=== PATIENT | male | born 1955 | race Caucasian/White ===

== ENCOUNTER 2017-02-16 00:06 | Observation (INO) | payer BC ==
--- NOTE | 2017-02-10 14:26 | HISTORY AND PHYSICAL ---
DATE OF ADMISSION: February 16, 2017 CHIEF COMPLAINT Interval appendectomy. 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 He does not drink anymore. He had a perforated appendix on November, that was treated with percutaneous drainage and antibiotics. He has recovered, and he returns now for an interval appendectomy. ALLERGIES He has no known allergies. CURRENT MEDICATIONS * Furosemide 10 mg twice a day. * Ibuprofen p.r.n. * Propranolol 20 mg twice a day. * Spironolactone 50 mg a day. PAST SURGICAL HISTORY * Carpal tunnel. * Colonoscopy. * Two laminectomies. REVIEW OF SYSTEMS Significant for the history of the alcoholic cirrhosis. PHYSICAL EXAMINATION GENERAL: A 61-year-old male in no acute distress. LUNGS: Clear. HEART: Regular rhythm. ABDOMEN: Soft, nontender. IMPRESSION History of perforated appendix. PLAN Laparoscopic appendectomy. We discussed the procedure, complications, and recovery time. He seems to understand and wishes to proceed. MACARIO
[2017-02-16] VITALS (17 sets, daily range): BP systolic 98–145; BP diastolic 62–84
[~2017-02-16] VITALS: Ht 175.3 cm; Wt 89.8 kg
[~2017-02-16 00:06] MED LIST: ASPI-1017 PO; ASPI-715 PO; CYC10 PO; FURO-45 PO; IBUP600T22 PO; LEVO-85 PO; METR-1 PO; PROP10TA58 PO; SPIR50TA31 PO
[2017-02-16] MEDS ORDERED: ROPIVACAINE 0.2% 20 ML VIAL ONE (06:46)
[2017-02-16 07:34] LABS: PLATELET COUNT, AUTOMATED 115 K/uL (150-450)
[2017-02-16] MEDS ORDERED: NORMOSOL R SOLN(*) 1000 ML BAG 1,000 ML IV PRN ×2 (07:45→10:29)
[2017-02-16] MEDS ORDERED: LIDOCAINE/SOD BICARB 8.4% SYR ID ONE (07:45)
[2017-02-16] MEDS ORDERED: cefOXitin/DEX(*) 2GM/50ML PREM 50 ML IVPB ONE (07:45)
[2017-02-16] MEDS ORDERED: FAMOTIDINE 20 MG TAB PO ONE (07:45)
[2017-02-16] MEDS ORDERED: MIDAZOLAM 2 MG/2 ML VIAL IVP PRN (07:45)
[2017-02-16 07:46] LABS: INR 1.3
[2017-02-16] MEDS ORDERED: SUGAMMADEX SOD 200 MG/2 ML SDV ONE (09:00)
[2017-02-16] MEDS ORDERED: ROCURONIUM BROM 10 MG/ML 5 ML ONE (09:00)
[2017-02-16] MEDS ORDERED: fentaNYL CITR 100 MCG/2 ML AMP ONE ×3 (09:38→10:52)
--- NOTE | 2017-02-16 10:29 | Post Operative Progress Note ---
Post Operative Progress Note Date: Feb 16, 2017 Time: 10:28 Surgeon: earnest Anesthesia: dr szymanski Pre-Op Diagnosis: history of perofarated appendix Post-Op Diagnosis: same Procedure(s): interval appendectomy Estimated Blood Loss: 500 cc MEDINA SPANN MD Feb 16, 2017 10:29
[2017-02-16] MEDS ORDERED: ONDANSETRON 4 MG/2 ML VIAL IVP PRN (10:30)
[2017-02-16 10:54] LABS: PLATELET COUNT, AUTOMATED 102 K/uL (150-450)
[2017-02-16] MEDS ORDERED: NS(*) 0.9% 500 ML BAG 500 ML ONE (10:56)
[2017-02-16] MEDS: cefOXitin/DEX(*) 1GM/50ML PREM 50 ML IVPB SCH (16:24)
--- NOTE | 2017-02-16 20:01 | OPERATIVE REPORT 1 ---
EVENT DATE: February 16, 2017 SURGEON: Salbador Cooper MD ANESTHESIOLOGIST: Marquis Acosta MD ANESTHESIA: General. PREOPERATIVE DIAGNOSIS History of a ruptured appendix. POSTOPERATIVE DIAGNOSIS History of a ruptured appendix. PROCEDURE PERFORMED Interval appendectomy. DESCRIPTION OF PROCEDURE The patient was placed in the supine position and given general anesthetic. His abdomen was prepped and draped in a sterile fashion. The skin was anesthetized with 0.2% ropivacaine. A small incision was made above the umbilicus. A Veress needle was inserted. The abdomen was insufflated with CO2. We then placed a 5 mm port in the left lower quadrant and a 10 mm port in the suprapubic site under direct vision. The patient was placed in Trendelenburg and rotated to the left. We went to the right lower quadrant. He had small intestine adhered to the lateral side of the abdomen lying over the cecum. We had to take down these adhesions. We did this with blunt dissection, sharp dissection, and the Harmonic scalpel. This was tedious, and it oozed. We continued our dissection. He had oozing throughout the procedure. We were able to get the small bowel and rotated medially. This exposed the appendix which was adhered down in the right lower quadrant quite firmly. This was dissected free with the Harmonic scalpel and blunt dissection. Again, we continued to have a little oozing. We were able to continue our dissection slowly, but progressively, and we were able to identify the appendiceal-cecal junction. At this point, we divided the mesoappendix with the Harmonic scalpel down to the appendiceal-cecal junction. We then placed an 0 chromic Endoloop at the appendiceal-cecal junction and two 0 PDS Endoloops distal. It was cut between the two PDS Endoloops. I placed the appendix in an Endopouch and removed it from the field. We suctioned, irrigated , and inspected for bleeding. We had good hemostasis, but because of the oozing that occurred throughout the dissection, we used Germán powder in the right lower quadrant at the appendix area and the dissection area. We then let the pressure down, waited three minutes, and reinspected. We had excellent hemostasis at this point, and the procedure was terminated. The ports were removed under direct vision. No bleeding was noted. The skin was closed with interrupted 4-0 Maxon. Steri-Strips and an Airstrip were placed. The patient tolerated the procedure well. No apparent complications. Estimated blood loss 500 mL. MTDD
[2017-02-17] MEDS: cefOXitin/DEX(*) 1GM/50ML PREM 50 ML IVPB SCH (00:56)
[2017-02-17 05:08] VITALS: BP 126/81
[2017-02-17 06:00] LABS: PLATELET COUNT, AUTOMATED 77 K/uL (150-450)
[2017-02-17 06:10] LABS: INR 1.46
[2017-02-17] MEDS: NORMOSOL R SOLN(*) 1000 ML BAG 1,000 ML IV PRN (06:18)
[2017-02-17 07:36] VITALS: BP 111/86
--- NOTE | 2017-02-17 08:05 | General Surgery Progress Note ---
Subjective Progress Notes Subjective has some diffuse abdominal pain, no nausea. voided. not much of an appetite. Physical Exam Vital Signs Date Time Temp Pulse Resp B/P (MAP) Pulse Ox O2 Delivery O2 Flow Rate FiO2 02/17/17 07:36 98.8 116 20 111/86 (94) 88 Room Air 02/16/17 23:39 2.0 General Appearance: Alert, Awake GI: Other (distended and firm tender diffusely.) Result Diagram: 02/17/17 0534 02/16/17 0720 Assessment and Plan Problems: (1) Status post appendectomy Assessment & Plan: a little tachycardic, oxygen sats low. wbc slightly elevated. hgb 14, platelets 77,000. will check a cxr. will repeat cbc later. try to work on ambulation and incentive spirometer. Exam Sepsis Risk: Severe Sepsis Risk MEDINA SPANN MD Feb 17, 2017 08:05
[2017-02-17] MEDS ORDERED: MAGNESIUM HYDROXIDE* 30ML UDCP PO PRN (08:10)
[2017-02-17] MEDS ORDERED: SPIRONOLACTONE 25 MG TAB PO SCH (09:00)
[2017-02-17] MEDS ORDERED: PANTOPRAZOLE SOD 40 MG TABEC PO SCH (09:00)
[2017-02-17] MEDS ORDERED: FUROSEMIDE 20 MG TAB PO SCH (09:00)
[2017-02-17] MEDS ORDERED: NICOTINE 14 MG/24 HR PATCH TD SCH (09:00)
[2017-02-17] MEDS ORDERED: PSYLLIUM 28% 1 PACKET PO SCH ×2 (09:00→21:00)
[2017-02-17] MEDS: PROPRANOLOL HCL 20 MG TAB PO SCH ×2 (09:02→20:15)
[2017-02-17 09:33] VITALS: Ht 175.3 cm; Wt 89.8 kg
--- NOTE | 2017-02-17 09:44 | RADIOLOGY IMAGING REPORT ---
FACILITY: [facility] PATIENT NAME: Alphonso Martinez : 1955 MR: [id number] V: [id number] EXAM DATE: ORDERING PHYSICIAN: MEDINA SPANN TECHNOLOGIST: Location: [facility] - [place] Patient: Alphonso Martinez : 1955 Visit/Account:[id number] Date of Sevice: 02/17/2017 CHEST PA AND LAT History: post op low sats FINDINGS: Comparison studies: Comparison radiograph 08/13/2008 Tubes and Lines: None. Lungs and pleura: There is hypoinflation with lungs expanded to only 8 ribs. Minimal left basilar d iscoid atelectasis noted. No evidence of pleural effusion. Mediastinum: normal. Cardiac silhouette: normal . Osseous structures: Unremarkable for age . IMPRESSION: Mild postoperative left basilar atelectasis and hypoinflation. Otherwise unremarkable Report Dictated By: Stone Swenson MD at 02/17/2017 9:12 AM Report E-Signed By: Stone Swenson MD at 02/17/2017 9:16 AM WSN:[id number]
[2017-02-17 10:44] VITALS: BP 124/77
[2017-02-17 16:06] LABS: PLATELET COUNT, AUTOMATED 77 K/uL (150-450)
[2017-02-17 16:08] VITALS: BP 108/63
--- NOTE | 2017-02-17 17:44 | General Surgery Progress Note ---
Subjective Progress Notes Subjective pt complains of some low crampy pain. tolerated po diet. feels a little better Physical Exam Vital Signs Date Time Temp Pulse Resp B/P (MAP) Pulse Ox O2 Delivery O2 Flow Rate FiO2 02/17/17 16:08 98.8 96 20 108/63 (78) 89 Nasal Cannula 1.0 Intake and Output 02/18/17 07:00 Intake Total 240 ml Output Total 300 ml Balance -60 ml Intake Oral 240 ml Output Urine Total 300 ml # Voids 2 General Appearance: Alert, Awake, No Acute Distress GI: Other (less tender and distended than this am, passing flatus.) Result Diagram: 02/17/17 1558 02/16/17 0720 Assessment and Plan Problems: (1) Status post appendectomy Assessment & Plan: a little tachycardic, oxygen sats low. wbc slightly elevated. hgb 14, platelets 77,000. will check a cxr. will repeat cbc later. try to work on ambulation and incentive spirometer. 02/17/17 cxr reveals some atelectasis. wbc elevated at 13. hgb stable. bowel function returning. will repeat lab and physical exam in am Exam Sepsis Risk: Severe Sepsis Risk MEDINA SPANN MD Feb 17, 2017 17:44
[2017-02-17 19:45] VITALS: BP 120/68
[2017-02-18 03:34] VITALS: BP 115/62
[2017-02-18] MEDS: NORMOSOL R SOLN(*) 1000 ML BAG 1,000 ML IV PRN (03:34)
[2017-02-18 06:00] LABS: INR 1.7
[2017-02-18 06:17] LABS: PLATELET COUNT, AUTOMATED 70 K/uL (150-450)
[2017-02-18 07:08] VITALS: BP 102/69
[2017-02-18] MEDS ORDERED: MAGNESIUM HYDROXIDE* 30ML UDCP PO PRN (07:10)
--- NOTE | 2017-02-18 07:11 | General Surgery Progress Note ---
Subjective Progress Notes Subjective no complaints, pain improved, tolerating po diet Physical Exam Vital Signs Date Time Temp Pulse Resp B/P (MAP) Pulse Ox O2 Delivery O2 Flow Rate FiO2 02/18/17 03:34 98.6 85 20 115/62 (79) 90 Nasal Cannula 1.0 General Appearance: Alert, Awake, No Acute Distress GI: Other (soft less tender) Result Diagram: 02/18/17 0520 02/16/17 0720 Assessment and Plan Problems: (1) Status post appendectomy Assessment & Plan: a little tachycardic, oxygen sats low. wbc slightly elevated. hgb 14, platelets 77,000. will check a cxr. will repeat cbc later. try to work on ambulation and incentive spirometer. 02/17/17 cxr reveals some atelectasis. wbc elevated at 13. hgb stable. bowel function returning. will repeat lab and physical exam in am 02/18/17 lab improved wbc down hgb stable. pulse down bp up. overall improved. home today Exam Sepsis Risk: No Definite Risk MEDINA SPANN MD Feb 18, 2017 07:11
[2017-02-18] MEDS ORDERED: HYDR-4309 PO (07:12)
--- NOTE | 2017-02-18 07:13 | Hospitalist Depart ---
Discharge Summary Reason for Hosp/Final Diag: (1) Status post appendectomy Hospital Course & Plan: a little tachycardic, oxygen sats low. wbc slightly elevated. hgb 14, platelets 77,000. will check a cxr. will repeat cbc later. try to work on ambulation and incentive spirometer. 02/17/17 cxr reveals some atelectasis. wbc elevated at 13. hgb stable. bowel function returning. will repeat lab and physical exam in am 02/18/17 lab improved wbc down hgb stable. pulse down bp up. overall improved. home today Departure Weight (Pounds): 198 Result Diagram: 02/18/17 0520 02/16/17 0720 Condition: Improved Discharge: Home Discharge Instructions Home Meds Active Scripts Hydrocodone Bit/Acetaminophen (NORCO 5-325 TABLET) 1 Each Tablet, 1 EACH PO Q4H Y for PAIN, #30 TAB Prov:MEDINA SPANN MD 02/18/17 Reported Medications Propranolol Hcl (PROPRANOLOL HCL) 10 Mg Tablet, 10 MG PO BID 12/02/16 Furosemide (FUROSEMIDE) 20 Mg Tablet, 1 TAB PO DAILY, TAB 12/02/16 Spironolactone (SPIRONOLACTONE) 50 Mg Tablet, 50 MG PO QDAY 03/19/15 Discontinued Scripts Levofloxacin 500 Mg Tab (LEVAQUIN 500 MG TAB) 500 Mg Tablet, 500 MG PO QDAY for 7 Days, #7 TAB Prov:MEDINA SPANN MD 12/07/16 Metronidazole (FLAGYL) 500 Mg Tablet, 500 MG PO TID, #21 TAB Prov:MEDINA SPANN MD 12/07/16 Diet: Regular Activity: As Tolerated Special Instructions: may shower ice to incisions prn to see me in one week, call [phone] for apt Venous Thromboembolism Antithrombotics Is Pt On Any Antithrombotics?: No MEDINA SPANN MD Feb 18, 2017 07:13
[2017-02-18] MEDS ORDERED: PATCH REMOVAL 1 EA TP SCH (09:00)
== END 2017-02-18 07:11 | disposition home or self-care (01) ==
LOC: OR 00:06 → MED 11:50
PROVIDERS: ADMIT Surgery; ATTEND Surgery
DX: K37 Unspecified appendicitis (principal); R09.02 Hypoxemia; J95.89 Other postprocedural complications and disorders of respiratory system, not elsewhere classified; J98.11 Atelectasis; Z87.19 Personal history of other diseases of the digestive system; R10.84 Generalized abdominal pain; R79.89 Other specified abnormal findings of blood chemistry
CPT/HCPCS: 36415; 44970; 71046; 85014; 85018; 85025; 85610; 86850; 86900; 86901; 88304; G0378; J0694; J2795; J3010; P9017; 82310; 82374; 82435; 82565; 82947; 84132; 84295; 84520

== ENCOUNTER 2017-04-01 14:53 | Outpatient (RCR) | payer BC ==
[2017-02-17 09:33] VITALS: Ht 179.1 cm; Wt 93.3 kg
[2017-03-05 09:25] VITALS: BP 99/67
--- NOTE | 2017-03-05 18:47 | ONCOLOGY CONSULTATION ---
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 HISTORY OF PRESENT ILLNESS Patient is a 61-year-old male who presented with ruptured appendix with periappendiceal abscess, treated with tube drainage on December 03, 2016. He had elective appendectomy on February 17, 2016, and final pathology came back positive for 0.4 x 0.1 cm carcinoid tumor positive for synaptophysin, chromogranin. Patient is doing fine after his surgery. PAST MEDICAL HISTORY Alcoholic cirrhosis. PAST SURGICAL HISTORY 1. Appendectomy on February 16, 2017. 2. Two laminectomies in 1999 and 2007. 3. Left carpal tunnel release in 2003. FAMILY HISTORY Brother had pancreatic cancer. Maternal grandfather had lung cancer. SOCIAL HISTORY Patient is with two children. He is retired from [employer] for 30 years. He quit smoking in November 2016, after half to one pack a day for 20 years. He quit alcohol. Denies any abuse of illicit drugs. CURRENT MEDICATIONS 1. Propanolol 10 mg twice daily. 2. Lasix 20 mg daily. 3. Spironolactone 50 mg daily. ALLERGIES No known drug allergies. REVIEW OF SYSTEMS CONSTITUTIONAL: No appetite or weight change. No fever, chills or sweating. No recent infection. HEENT: Ears: No tinnitus or hearing problem. Nose: No nasal discharge or epistaxis. Throat: No sore throat or mouth ulcers. Eyes: No diplopia or visual changes. RESPIRATORY: No shortness of breath. No cough, expectoration or hemoptysis. CARDIOVASCULAR: No chest pain, orthopnea, or paroxysmal nocturnal dyspnea (PND) . No edema. No palpitations. GASTROINTESTINAL: No nausea or vomiting. No diarrhea or constipation. No change in bowel movements. No heartburn or swallowing difficulties. No abdominal pain. No jaundice. No hematemesis, melena or rectal bleeding. GENITOURINARY: No hematuria or dysuria. MUSCULOSKELETAL: No pain in the muscles, joints or bones. NEUROLOGICAL: Patient has sciatica pain sometimes. It can sometimes on the right side or the left side. HEMATOLOGIC/LYMPHATIC: No bleeding or easy bruising. No weakness or fatigue. No enlarged lymph nodes. SKIN: No skin rash or lumps. PSYCHIATRIC: No anxiety or depression. PHYSICAL EXAMINATION GENERAL: Looks stable. Well-developed, well-nourished, and in no acute distress. VITAL SIGNS: Blood pressure 99/67, pulse 75 per minute, respirations 16 per minute, temperature 96.8, pulse ox 97% on room air. HEENT: Head: Atraumatic. No sinus tenderness to palpation. Eyes: No icterus or conjunctivitis. Mouth and throat: No oral thrush or mucositis. NECK: Supple. No cervical or supraclavicular lymphadenopathy. LUNGS: Clear to auscultation and percussion bilaterally. HEART: Regular rate and rhythm. No gallops, murmurs, clicks or rubs. ABDOMEN: Soft and lax. No tenderness. No hepatosplenomegaly. No masses. EXTREMITIES: No cyanosis, clubbing or edema. LYMPHATICS: No peripheral lymphadenopathy. NEUROLOGICAL: Conscious, alert and oriented times three. No focal motor or sensory deficits. PSYCHIATRIC: Mood and affect appear normal. SKIN: No skin rash, bruise or purpuric eruption. ASSESSMENT 1. 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 Final pathology was positive for 0.4 x 0.1 cm carcinoid tumor. Despite the fact that right colectomy is controversial for the treatment of appendiceal carcinoid tumor, but most of the reports could recommend right colectomy if the mass is above 2 cm in size, and the patient's mass is only 0.4 x 0.1 cm. The only problem is a ruptured appendix with possible peritoneal dissemination. I am planning to do blood work with CBC, chem panel, chromogranin and CEA, and I am planning also to have a CT abdomen and pelvis with IV and oral contrast to see if there is any residual tumor or not. I explained that to the patient. The patient is agreeable with the plan of management. 2. History of alcoholic cirrhosis. PLAN 1. Continue followup. 2. Patient to return with CBC, chem panel, chromogranin A and CEA. 3. Check CT abdomen and pelvis with IV and oral contrast prior to his next visit. 4. Patient to contact us for any new concerns or complaints. MACARIO
[2017-03-25 08:22] VITALS: BP 124/66
[2017-03-25 08:49] LABS: PLATELET COUNT, AUTOMATED 106 K/uL (150-450)
--- NOTE | 2017-03-25 10:14 | RADIOLOGY IMAGING REPORT ---
FACILITY: [facility] - [place] PATIENT NAME: Alphonso Martinez : 1955 MR: [id number] V: [id number] EXAM DATE: ORDERING PHYSICIAN: JD GALARZA TECHNOLOGIST: Location: [facility] Patient: Alphonso Martinez : 1955 Visit/Account:[id number] Date of Sevice: 03/25/2017 ABDOMEN/PELVIS W/WO CONTRAST Indication: Carcinoid tumor. Comparison: CT abdomen and pelvis 12/02/2016 Technique: CT lung bases to the pubic symphysis were obtained without and with IV contrast. 75 cc of Isovue 370 was used. One of the following dose optimization techniques was utilized in the performance of this exam: autom ated exposure control; adjustment of the mA and/or kV according to the patient's size; or use of an i terative reconstruction technique. Specific details can be referenced in the facility's radiology CT exam operational policy. Findings: Liver/gallbladder: Liver demonstrates a 3 mm cyst in the lateral segment of the left lobe. Remainin g portions the liver demonstrate normal enhancement. The surface of the liver demonstrates a nodular contour, consistent with cirrhosis, stable. Small gallstones are seen. Spleen: Mild splenomegaly is unchanged. Adrenals: Normal. Pancreas: Normal enhancement without evidence of mass. Kidneys/: There is a simple cyst in the lower pole of the left kidney. Remaining portions of both right and left kidney demonstrate normal enhancement. There is no evidence of hydronephrosis. Pelvic : Urinary bladder is normal. GI: The colon, small bowel, and stomach are normal. Prior appendicitis has resolved. Vessels/spaces/nodes: There is no intraperitoneal or retroperitoneal adenopathy. Multiple periaorti c lymph nodes are seen, however they are all normal size. There is no intraperitoneal soft tissue ma ss. Bones/soft tissues: There are degenerative changes in the lumbar spine, as well as laminectomy surgi pascual changes. Lung bases: Lung bases are clear. Impression: 1. Previously seen right lower quadrant appendicitis, with inflamed appendix and loculated right low er quadrant fluid collection has resolved. There is no residual soft tissue mass. 2. Findings consistent with cirrhosis. There is no suspicious enhancing lesion in the liver. This is also unchanged. 3. Simple cyst lower pole left kidney. 4. No evidence of suspicious intraperitoneal or retroperitoneal soft tissue mass or adenopathy. Report Dictated By: Michele Silveira at 03/25/2017 10:03 AM Report E-Signed By: Michele Silveira at 03/25/2017 10:11 AM WSN:[id number]
[~2017-04-01] VITALS: Ht 179.1 cm; Wt 93.3 kg
[~2017-04-01 14:53] MED LIST changes: +DEXTROSE 5%(*) 100 ML BAG 100 ML IVPB PRN; +HYDR-4309 PO; +IOPAMIDOL 76% 75 ML INFUS BTL 75 ML ONE; +LIDOCAINE/SOD BICARB 8.4% SYR ID PRN; +NS(*) 0.9% 100 ML BAG 100 ML IVPB PRN
[2017-04-01 14:59] VITALS: BP 110/71
--- NOTE | 2017-04-01 20:18 | ONCOLOGY FOLLOW UP NOTE ---
EVENT DATE: April 01, 2017 DIAGNOSES 1. Appendicular carcinoid tumor. 2. History of alcoholic cirrhosis. CHIEF COMPLAINT Patient is here today for followup of his appendicular carcinoid tumor. ONCOLOGY HISTORY Patient is a 61-year-old male who presented with ruptured appendix with periappendiceal abscess, treated with tube drainage on December 03, 2016. He had elective appendectomy on February 17, 2016, and final pathology came back positive for 0.4 x 0.1 cm carcinoid tumor positive for synaptophysin, chromogranin. Patient is doing fine after his surgery. HISTORY OF PRESENT ILLNESS Patient is here today for followup of his appendicular carcinoid tumor. He is doing fine currently except having some numbness in his hands from carpal tunnel syndrome. PAST MEDICAL HISTORY Alcoholic cirrhosis. PAST SURGICAL HISTORY 1. Appendectomy on February 16, 2017. 2. Two laminectomies in 1999 and 2007. 3. Left carpal tunnel release in 2003. FAMILY HISTORY Brother had pancreatic cancer. Maternal grandfather had lung cancer. SOCIAL HISTORY Patient is with two children. He is retired from [employer] for 30 years. He quit smoking in November 2016, after half to one pack a day for 20 years. He quit alcohol. Denies any abuse of illicit drugs. CURRENT MEDICATIONS 1. Propanolol 10 mg twice daily. 2. Lasix 20 mg daily. 3. Spironolactone 50 mg daily. ALLERGIES No known drug allergies. REVIEW OF SYSTEMS CONSTITUTIONAL: No appetite or weight change. No fever, chills or sweating. No recent infection. HEENT: Ears: No tinnitus or hearing problem. Nose: No nasal discharge or epistaxis. Throat: No sore throat or mouth ulcers. Eyes: No diplopia or visual changes. RESPIRATORY: No shortness of breath. No cough, expectoration or hemoptysis. CARDIOVASCULAR: No chest pain, orthopnea, or paroxysmal nocturnal dyspnea (PND) . No edema. No palpitations. GASTROINTESTINAL: No nausea or vomiting. No diarrhea or constipation. No change in bowel movements. No heartburn or swallowing difficulties. No abdominal pain. No jaundice. No hematemesis, melena or rectal bleeding. GENITOURINARY: No hematuria or dysuria. MUSCULOSKELETAL: No pain in the muscles, joints or bones. NEUROLOGICAL: Patient has numbness in his hands from carpal tunnel syndrome. HEMATOLOGIC/LYMPHATIC: No bleeding or easy bruising. No weakness or fatigue. No enlarged lymph nodes. SKIN: No skin rash or lumps. PSYCHIATRIC: No anxiety or depression. PHYSICAL EXAMINATION GENERAL: Looks stable. Well-developed, well-nourished, and in no acute distress. VITAL SIGNS: Blood pressure 110/71, pulse 78 per minute, respirations 16 per minute, temperature 97, pulse ox 96% on room air. HEENT: Head: Atraumatic. No sinus tenderness to palpation. Eyes: No icterus or conjunctivitis. Mouth and throat: No oral thrush or mucositis. NECK: Supple. No cervical or supraclavicular lymphadenopathy. LUNGS: Clear to auscultation and percussion bilaterally. HEART: Regular rate and rhythm. No gallops, murmurs, clicks or rubs. ABDOMEN: Soft and lax. No tenderness. No hepatosplenomegaly. No masses. EXTREMITIES: No cyanosis, clubbing or edema. LYMPHATICS: No peripheral lymphadenopathy. NEUROLOGICAL: Conscious, alert and oriented times three. No focal motor or sensory deficits. PSYCHIATRIC: Mood and affect appear normal. SKIN: No skin rash, bruise or purpuric eruption. DIAGNOSTIC DATA CBC showed a white count of 6.4, hemoglobin 16, hematocrit 46.5, platelets 106, 000. Chem panel totally normal except AST 55, ALT 66, alkaline phosphatase 184. CEA is normal at 2.9. Chromogranin is normal at 53. CT of the abdomen and pelvis on March 25, 2017 was negative for malignancy. ASSESSMENT 1. 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 Final pathology was positive for 0.4 x 0.1 cm carcinoid tumor. Despite the fact that right hemicolectomy is controversial for the treatment of appendiceal carcinoid tumor, but most of the reports recommend right colectomy if the mass is above 2 cm in size, and given that the patient's mass is only 0.4 cm in size, the only problem was ruptured appendix with possible peritoneal dissemination. His CT abdomen and pelvis on March 25, 2017 did not show any evidence of malignancy. I am planning to continue followup. I will see him again in three months with CBC, chem panel, CEA and chromogranin A. 2. History of alcoholic cirrhosis. PLAN 1. Continue followup. 2. Patient to return in three months with CBC, chem panel, chromogranin A and CEA. 3. Patient to contact us for any new concerns or complaints. MACARIO
== END 2017-06-02 ==
LOC: ONC 14:53
PROVIDERS: ATTEND Internal Medicine Hematology
DX: C7A.020 Malignant carcinoid tumor of the appendix (principal); Z87.891 Personal history of nicotine dependence; N28.1 Cyst of kidney, acquired; K76.89 Other specified diseases of liver
CPT/HCPCS: 36415; 74178; 82378; 85025; 86316; 99202; 99212; Q9967; 82040; 82247; 82310; 82374; 82435; 82565; 82947; 84075; 84132; 84155; 84295; 84450; 84460; 84520

== ENCOUNTER → 2017-09-23 | Outpatient (RCR) | payer BC ==
[2017-02-17 09:33] VITALS: Wt 95.9 kg
[2017-06-28 09:16] VITALS: BP 108/67
[2017-06-28 09:28] LABS: PLATELET COUNT, AUTOMATED 132 K/uL (150-450)
[2017-07-01 09:03] VITALS: BP 107/72
[~2017-09-23] MED LIST changes: -DEXTROSE 5%(*) 100 ML BAG 100 ML IVPB PRN; -IOPAMIDOL 76% 75 ML INFUS BTL 75 ML ONE; -LIDOCAINE/SOD BICARB 8.4% SYR ID PRN; -NS(*) 0.9% 100 ML BAG 100 ML IVPB PRN; -SPIR50TA31 PO; +SPIR50TA33 PO
[2017-09-23 08:50] VITALS: BP 124/73
[2017-09-23 09:00] LABS: PLATELET COUNT, AUTOMATED 113 K/uL (150-450)
== END ==
LOC: ONC 06-25 08:47 → SPU 06-28 08:56 → ONC 07-01 08:55 → SPU 08:25
PROVIDERS: ATTEND Internal Medicine Hematology
DX: D3A.098 Benign carcinoid tumors of other sites (principal)
CPT/HCPCS: 36415; 82040; 82247; 82310; 82374; 82378; 82435; 82565; 82947; 84075; 84132; 84155; 84295; 84450; 84460; 84520; 85025; 86316; 99212

== ENCOUNTER 2017-09-30 08:55 | Outpatient (RCR) | payer BC ==
[2017-02-17 09:33] VITALS: Wt 98.2 kg
[~2017-09-30 08:55] MED LIST changes: -HYDR-4309 PO; +HYDR-653 PO
[2017-09-30 09:02] VITALS: BP 110/72
--- NOTE | 2017-09-30 14:44 | EL-TARABILY ONCOLOGY NOTE ---
EVENT DATE: September 30, 2017 DIAGNOSES 1. Appendicular carcinoid tumor. 2. History of alcoholic cirrhosis. CHIEF COMPLAINT Patient is here today for followup of his appendicular carcinoid tumor. ONCOLOGY HISTORY Patient is a 61-year-old male who presented with ruptured appendix with periappendiceal abscess, treated with tube drainage on December 03, 2016. He had elective appendectomy on February 17, 2016, and final pathology came back positive for 0.4 x 0.1 cm carcinoid tumor positive for synaptophysin, chromogranin. Patient is doing fine after his surgery. HISTORY OF PRESENT ILLNESS Patient is here today for followup of his appendicular carcinoid tumor. He is doing fine currently, and apart from having pain in the legs from sciatica from his back and tingling in his left foot, patient does not have any other problem. His bowel movements are stable and regular. PAST MEDICAL HISTORY Alcoholic cirrhosis. PAST SURGICAL HISTORY 1. Appendectomy on February 16, 2017. 2. Two laminectomies in 1999 and 2007. 3. Left carpal tunnel release in 2003. FAMILY HISTORY Brother had pancreatic cancer. Maternal grandfather had lung cancer. SOCIAL HISTORY Patient is with two children. He is retired from [employer] for 30 years. He quit smoking in November 2016 after half to one pack a day for 20 years. He quit alcohol. Denies any abuse of illicit drugs. CURRENT MEDICATIONS 1. Propanolol 10 mg twice daily. 2. Lasix 20 mg daily. 3. Spironolactone 50 mg daily. ALLERGIES No known drug allergies. REVIEW OF SYSTEMS CONSTITUTIONAL: No appetite or weight change. No fever, chills or sweating. No recent infection. HEENT: Ears: No tinnitus or hearing problem. Nose: No nasal discharge or epistaxis. Throat: No sore throat or mouth ulcers. Eyes: No diplopia or visual changes. RESPIRATORY: No shortness of breath. No cough, expectoration, or hemoptysis. CARDIOVASCULAR: No chest pain, orthopnea, or paroxysmal nocturnal dyspnea (PND). No edema. No palpitations. GASTROINTESTINAL: No nausea or vomiting. No diarrhea or constipation. No change in bowel movements. No heartburn or swallowing difficulties. No abdominal pain. No jaundice. No hematemesis, melena, or rectal bleeding. GENITOURINARY: No hematuria or dysuria. MUSCULOSKELETAL: He has pain in the legs from sciatica. NEUROLOGICAL: He has tingling in the left foot. HEMATOLOGIC/LYMPHATIC: No bleeding or easy bruising. No weakness or fatigue. No enlarged lymph nodes. SKIN: No skin rash or lumps. PSYCHIATRIC: No anxiety or depression. PHYSICAL EXAMINATION GENERAL: Looks stable. Well developed, well nourished, and in no acute distress. VITAL SIGNS: Blood pressure 110/72, pulse 65 per minute, respirations 16 per minute, temperature 96.7, pulse ox 97% on room air. HEENT: Head: Atraumatic. No sinus tenderness to palpation. Eyes: No icterus or conjunctivitis. Mouth and throat: No oral thrush or mucositis. NECK: Supple. No cervical or supraclavicular lymphadenopathy. LUNGS: Clear to auscultation and percussion bilaterally. HEART: Regular rate and rhythm. No gallops, murmurs, clicks, or rubs. ABDOMEN: Soft and lax. No tenderness. No hepatosplenomegaly. No masses. EXTREMITIES: No cyanosis, clubbing, or edema. LYMPHATICS: No peripheral lymphadenopathy. NEUROLOGICAL: Conscious, alert, and oriented times three. No focal motor or sensory deficits. PSYCHIATRIC: Mood and affect appear normal. SKIN: No skin rash, bruise, or purpuric eruption. DIAGNOSTIC DATA CBC showed a white count 6.2, hemoglobin 15.7, hematocrit 45.2, platelets 113,000. Chem panel is totally normal except BUN 23, AST 56, alkaline phosphatase 147. CEA is 3.1, which is down from 3.2. ASSESSMENT 1. Appendicular carcinoid tumor, status post elective appendectomy done on February 16, 2017, after tube drainage of the periappendicular abscess after ruptured appendix on December 03, 2016. Final pathology was positive for 0.4 x 0.1 cm carcinoid tumor. Despite the fact that right hemicolectomy is controversial for the treatment of appendicular carcinoid tumor, most of the reports recommend right colectomy if the mass is above 2 cm in size. Given that the patient's mass is only 0.4 cm in size, the only problem was ruptured appendix with possible peritoneal dissemination. His CT abdomen and pelvis on March 25, 2017, did not show any evidence of malignancy. I am planning to repeat the CT abdomen and pelvis with intravenous and oral contrast with his next visit in three months, and I will repeat his blood count with CBC, chemistry panel, CEA, and chromogranin A. 2. History of alcoholic cirrhosis. PLAN 1. Continue followup. 2. Patient to return in three months with CBC, chem panel, chromogranin A, CEA, and CT abdomen and pelvis with IV and oral contrast. 3. Patient to contact us for any new concerns or complaints. MACARIO
== END 2017-12-28 ==
LOC: ONC 08:55
PROVIDERS: ATTEND Internal Medicine Hematology
DX: C7A.020 Malignant carcinoid tumor of the appendix (principal); K70.30 Alcoholic cirrhosis of liver without ascites; M54.32 Sciatica, left side; R20.2 Paresthesia of skin; Z87.891 Personal history of nicotine dependence
CPT/HCPCS: 99212

== ENCOUNTER → 2018-01-04 | Outpatient (REF) | payer BC ==
[2017-02-17 09:33] VITALS: BMI 29.2
== END ==
LOC: ZZSENDIN 10:33
PROVIDERS: ATTEND Physician Assistant
DX: E78.2 Mixed hyperlipidemia (principal)
CPT/HCPCS: 82465; 83718; 84478

== ENCOUNTER 2018-01-27 09:44 | Outpatient (RCR) | payer BC ==
[2017-02-17 09:33] VITALS: Wt 97.3 kg
[2018-01-03 08:23] LABS: PLATELET COUNT, AUTOMATED 123 K/uL (150-450)
--- NOTE | 2018-01-03 12:13 | RADIOLOGY IMAGING REPORT ---
FACILITY: [facility] - [place] PATIENT NAME: Alphonso Martinez : 1955 MR: [id number] V: [id number] EXAM DATE: ORDERING PHYSICIAN: JD GALARZA TECHNOLOGIST: Location: [facility] [place] Patient: Alphonso Martinez : 1955 Visit/Account:[id number] Date of Sevice: 01/03/2018 ABDOMEN/PELVIS W/WO CONTRAST HISTORY: Carcinoid tumor TECHNIQUE: Axial images acquired through the abdomen/pelvis both with and without IV contrast.. Skyler nal and sagittal reformatting also performed.Dose Lowering Technique One of the following dose optimization techniques was utilized in the performance of this exam: Autom ated exposure control; adjustment of the mA and/or kV according to the patient's size; or use of an i terative reconstruction technique. Specific details can be referenced in the facility's radiology C T exam operational policy. CONTRAST: 69 mL Isovue-370 COMPARISON: March 25, 2017 FINDINGS: Visualized lung bases: There are coronary artery calcifications Hepatobiliary: Extensive lobular contour to the liver is again noted consistent with cirrhosis. 3 m m hypodensity lateral segment left lobe of the liver remain stable. There is cholelithiasis present. Gallbladder appears moderately distended.. There several tiny calcifications projecting just media l to the second portion of the duodenum. These could conceivably be in the distalmost portion of the common bile duct Spleen: Spleen is enlarged measuring 16.1 cm in length relatively unchanged Adrenals: Negative. Pancreas: Negative. Kidneys ureters and bladder: Lower pole left renal cyst again noted. There is mild thickening of the bladder wall Genitalia: Prostate gland is heterogeneous contains coarse calcifications and impinges upon the floo r the urinary bladder GI: There is Is diverticulosis left-sided colon although no CT evidence of acute diverticulitis. The patient is status post appendectomy. No local tumor recurrence is identified Vessels/spaces/nodes: There are moderate vascular calcifications present. No pathologic-appearing a denopathy is identified Bones/soft tissues: There are extensive spondylotic changes of the visualized thoracolumbar spine Additional findings: None pertinent. IMPRESSION: Cirrhotic appearance to the liver again noted. There is cholelithiasis although the gallbladder appears moderately distended. There are several tin y calcifications projecting just medial to the second portion the duodenum which could conceivably be within the distalmost portion of the common bile duct. If of concern MRCP may be helpful. Mild bladder wall thickening Patient status post appendectomy. No local tumor recurrence is identified from patient's known carci noid tumor No metastatic disease is identified Report Dictated By: Olimpia Webb MD at 01/03/2018 11:45 AM Report E-Signed By: Olimpia Webb MD at 01/03/2018 12:07 PM WSN:[id number]
[~2018-01-27 09:44] MED LIST changes: +IOPAMIDOL 76% 75 ML INFUS BTL 75 ML ONE
[2018-01-27 09:52] VITALS: BP 113/60
--- NOTE | 2018-01-27 17:32 | ONCOLOGY FOLLOW UP NOTE ---
EVENT DATE: January 27, 2018 CHIEF COMPLAINT Follow up for appendicular carcinoid tumor. HISTORY OF PRESENT ILLNESS Patient is a 62-year-old male who was seen today in three-month followup for appendicular carcinoid tumor. Overall, he is doing well. He feels fully recovered from surgery. He has had no carcinoid-related symptoms and denies any new complaints. ONCOLOGY HISTORY Patient is a 62-year-old male who presented with ruptured appendix with periappendiceal abscess, treated with tube drainage on 12/03/16. He underwent elective appendectomy on 02/16/17. Final pathology was positive for 0.4 x 0.1 cm carcinoid tumor, positive for synaptophysin and chromogranin. Required no further treatment. PAST MEDICAL HISTORY 1. Appendicular carcinoid tumor, February 2017. 2. Alcoholic cirrhosis. SURGICAL HISTORY 1. Appendectomy, 02/16/17. 2. Laminectomy times two, 1999 and 2007. 3. Left carpal tunnel release, 2003. FAMILY HISTORY Brother had pancreatic cancer. Maternal grandfather had lung cancer. SOCIAL HISTORY Patient is with two children. He retired from the [employer] after 30 years. He quit smoking in November 2016 after one-half to one pack a day for 20 years. He also quit alcohol at that time. Denies any abuse of illicit drugs. CURRENT MEDICATIONS 1. Propranolol 10 mg b.i.d. 2. Lasix 20 mg daily. 3. Spironolactone 50 mg daily. ALLERGIES No known drug allergies. REVIEW OF SYSTEMS A 12-point review of systems is performed and is negative except as stated above. PHYSICAL EXAMINATION VITAL SIGNS: Weight 97.3 kg. BP 113/60, P 60, R 16, temp 96.9, O2 sat 98%. GENERAL: Patient is a well-developed, well-nourished male in no acute distress. HEAD: Atraumatic, normocephalic. EYES: Sclerae anicteric. MOUTH: Moist mucous membranes. NECK: Supple. No adenopathy. LUNGS: Slightly diminished, but clear bilaterally. CARDIOVASCULAR: Heart rate regular, 60 per minute without murmur, S3, or S4. ABDOMEN: Soft, nontender, with active bowel sounds. No organomegaly. EXTREMITIES: No edema. NEUROLOGIC: Nonfocal. LABORATORIES CBC on 01/03/18 showed a WBC of 7.7, hemoglobin 16.9, hematocrit 49.7, platelets 123,000. CEA 3.0. Chromogranin A 50. IMPRESSION AND PLAN The patient is a 62-year-old male diagnosed with an appendicular carcinoid tumor after undergoing elective appendectomy on 02/16/17. Final pathology was positive for a 0.4 x 0.1 cm carcinoid tumor. No further treatment since that time. 1. Appendicular carcinoid tumor. No signs or symptoms of disease recurrence. CT scan on 01/03/18 showed no evidence of metastatic disease. Chromogranin A was within normal limits at 50, as was his CEA of 3.0. 2. Thrombocytopenia. Platelet count today is fairly stable at 123,000. He denies excessive bruising or bleeding. It is felt this is related to his alcohol cirrhosis. 3. Follow up in three months for continued care. CBC, CMP, CEA, and chromogranin A will be drawn before that visit. [facility]
== END 2018-04-03 ==
LOC: ONC 09:44
PROVIDERS: ATTEND Internal Medicine Hematology
DX: D3A.098 Benign carcinoid tumors of other sites (principal); D69.6 Thrombocytopenia, unspecified; Z87.891 Personal history of nicotine dependence
CPT/HCPCS: 36415; 74178; 82378; 85025; 86316; 99212; Q9967; 82040; 82247; 82310; 82374; 82435; 82565; 82947; 84075; 84132; 84155; 84295; 84450; 84460; 84520

== ENCOUNTER 2018-04-20 13:51 | Outpatient (RCR) | payer BC ==
[2017-02-17 09:33] VITALS: BMI 29.2
[~2018-04-20 13:51] MED LIST changes: -IOPAMIDOL 76% 75 ML INFUS BTL 75 ML ONE
== END 2018-04-21 15:30 | disposition home or self-care (01) ==
LOC: ONC 13:51
PROVIDERS: ATTEND Internal Medicine Hematology
DX: D3A.098 Benign carcinoid tumors of other sites (principal)

== ENCOUNTER 2018-04-28 09:53 | Outpatient (RCR) | payer BC ==
[2017-02-17 09:33] VITALS: Wt 97.8 kg
[2018-04-25 09:31] VITALS: BP 117/90
[2018-04-25 09:48] LABS: PLATELET COUNT, AUTOMATED 116 K/uL (150-450)
[2018-04-28 09:58] VITALS: BP 123/75
--- NOTE | 2018-04-28 11:12 | EL-TARABILY ONCOLOGY NOTE ---
EVENT DATE: April 28, 2018 DIAGNOSES 1. Appendicular carcinoid tumor. 2. History of alcoholic cirrhosis. CHIEF COMPLAINT Patient is here today for followup of his appendicular carcinoid tumor. ONCOLOGY HISTORY Patient is a 62-year-old male who presented with ruptured appendix with periappendiceal abscess, treated with tube drainage on December 03, 2016. He had elective appendectomy on February 17, 2016, and final pathology came back positive for 0.4 x 0.1 cm carcinoid tumor positive for synaptophysin, chromogranin. Patient is doing fine after his surgery. HISTORY OF PRESENT ILLNESS Patient is here today for followup of his appendicular carcinoid tumor. He is doing fine currently. Apart from having back pain with bilateral sciatica and numbness in the feet, patient does not have any other complaints. PAST MEDICAL HISTORY Alcoholic cirrhosis. PAST SURGICAL HISTORY 1. Appendectomy on February 16, 2017. 2. Two laminectomies in 1999 and 2007. 3. Left carpal tunnel release in 2003. FAMILY HISTORY Brother had pancreatic cancer. Maternal grandfather had lung cancer. SOCIAL HISTORY Patient is with two children. He is retired from [employer] for 30 years. He quit smoking in November 2016 after half to one pack a day for 20 years. He quit alcohol. Denies any abuse of illicit drugs. CURRENT MEDICATIONS 1. Propranolol 10 mg twice daily. 2. Lasix 20 mg daily. 3. Spironolactone 50 mg daily. ALLERGIES No known drug allergies. REVIEW OF SYSTEMS CONSTITUTIONAL: No appetite or weight change. No fever, chills or sweating. No recent infection. HEENT: Ears: No tinnitus or hearing problem. Nose: No nasal discharge or epistaxis. Throat: No sore throat or mouth ulcers. Eyes: No diplopia or visual changes. RESPIRATORY: No shortness of breath. No cough, expectoration, or hemoptysis. CARDIOVASCULAR: No chest pain, orthopnea, or paroxysmal nocturnal dyspnea (PND). No edema. No palpitations. GASTROINTESTINAL: No nausea or vomiting. No diarrhea or constipation. No change in bowel movements. No heartburn or swallowing difficulties. No abdominal pain. No jaundice. No hematemesis, melena, or rectal bleeding. GENITOURINARY: No hematuria or dysuria. MUSCULOSKELETAL: He has back pain with bilateral sciatica. NEUROLOGICAL: He has numbness in the feet. HEMATOLOGIC/LYMPHATIC: No bleeding or easy bruising. No weakness or fatigue. No enlarged lymph nodes. SKIN: No skin rash or lumps. PSYCHIATRIC: No anxiety or depression. PHYSICAL EXAMINATION GENERAL: Looks stable. Well developed, well nourished, and in no acute distress. VITAL SIGNS: Blood pressure 123/75, pulse 67 per minute, respirations 16 per minute, temperature 97, pulse ox 97% on room air. HEENT: Head: Atraumatic. No sinus tenderness to palpation. Eyes: No icterus or conjunctivitis. Mouth and throat: No oral thrush or mucositis. NECK: Supple. No cervical or supraclavicular lymphadenopathy. LUNGS: Clear to auscultation and percussion bilaterally. HEART: Regular rate and rhythm. No gallops, murmurs, clicks, or rubs. ABDOMEN: Soft and lax. No tenderness. No hepatosplenomegaly. No masses. EXTREMITIES: No cyanosis, clubbing, or edema. LYMPHATICS: No peripheral lymphadenopathy. NEUROLOGICAL: Conscious, alert, and oriented times three. No focal motor or sensory deficits. PSYCHIATRIC: Mood and affect appear normal. SKIN: No skin rash, bruise, or purpuric eruption. DIAGNOSTIC DATA CBC showed a white count 6.6, hemoglobin 15.9, hematocrit 47, platelets 116,000. Chem panel is totally normal except AST 58, ALT 58, alkaline phosphatase 135. CEA is 2.9, down from 3. Chromogranin A was 62, within the normal range. ASSESSMENT 1. Appendicular carcinoid tumor, status post elective appendectomy done on February 16, 2017, after tube drainage of periappendicular abscess after ruptured appendix on December 03, 2016. Final pathology was positive for 0.4 x 0.1 cm carcinoid tumor. Despite the fact the right hemicolectomy is controversial for the treatment of appendicular carcinoid tumor, most of the reports recommend right colectomy if the mass is above 2 cm in size. Given that the patient's mass is only 0.4 cm in size, the only problem was ruptured appendix with possible peritoneal dissemination. His CT abdomen and pelvis on March 25, 2017, did not show any evidence of malignancy. I am planning to continue followup. I will see him again in three months with CBC, chem panel, CEA and chromogranin A. 2. History of alcoholic cirrhosis. PLAN 1. Continue followup. 2. Patient to return in three months with CBC, chem panel, chromogranin A and CEA. 3. Patient to contact us for any new concerns or complaints. MACARIO
== END 2018-07-11 13:44 | disposition home or self-care (01) ==
LOC: ONC 09:53
PROVIDERS: ATTEND Internal Medicine Hematology
DX: D3A.098 Benign carcinoid tumors of other sites (principal); Z87.891 Personal history of nicotine dependence
CPT/HCPCS: 36415; 82040; 82247; 82310; 82374; 82378; 82435; 82565; 82947; 84075; 84132; 84155; 84295; 84450; 84460; 84520; 85025; 86316; 99212

== ENCOUNTER 2018-08-05 08:30 | Outpatient (RCR) | payer BC ==
[2017-02-17 09:33] VITALS: BMI 29.2
[2018-08-01 08:52] LABS: PLATELET COUNT, AUTOMATED 105 K/uL (150-450)
[2018-08-01 08:55] VITALS: BP 123/64
[2018-08-05 08:58] VITALS: BP 109/64
--- NOTE | 2018-08-05 14:25 | ONCOLOGY FOLLOW UP NOTE ---
EVENT DATE: August 05, 2018 CHIEF COMPLAINT Followup for appendicular carcinoid tumor. HISTORY OF PRESENT ILLNESS Patient is a 62-year-old male who was seen in three-month followup for appendicular carcinoid tumor. This was surgically resected in February 2017. Overall, he is doing well. His energy is good, and he denies any abdominal pain. He continues followup with GI tour consultant in [place], but liver disease has been stable. His only complaint is of some fatigue. ONCOLOGY HISTORY Patient is a 62-year-old male who presented with ruptured appendix with periappendiceal abscess, treated with tube drainage on 12/03/16. He underwent elective appendectomy on 02/16/17. Final pathology was positive for 0.4 x 0.1 cm carcinoid tumor, positive for synaptophysin and chromogranin. Required no further treatment. PAST MEDICAL HISTORY 1. Appendicular carcinoid tumor, February 2017. 2. Alcoholic cirrhosis. SURGICAL HISTORY 1. Appendectomy, 02/16/17. 2. Laminectomy times two, 1999 and 2007. 3. Left carpal tunnel release, 2003. FAMILY HISTORY Brother had pancreatic cancer. Maternal grandfather had lung cancer. SOCIAL HISTORY Patient is with two children. He retired from the [employer] after 30 years. He quit smoking in November 2016 after one-half to one pack a day for 20 years. He quit drinking alcohol on 01/28/15. Denies any abuse of illicit drugs. CURRENT MEDICATIONS 1. Propranolol 10 mg b.i.d. 2. Lasix 20 mg daily. 3. Spironolactone 50 mg daily. ALLERGIES No known drug allergies. REVIEW OF SYSTEMS A 12-point review of systems is performed and is negative except as stated above. PHYSICAL EXAMINATION VITAL SIGNS: Blood pressure 109/64, pulse 64, respirations 16, temp 97.4, O2 sat 99%. GENERAL: Patient is a well-developed, well-nourished male in no acute distress. HEAD: Atraumatic, normocephalic. EYES: Sclerae anicteric. MOUTH: Moist mucous membranes. NECK: Supple. No palpable adenopathy. LUNGS: Clear bilaterally. CARDIOVASCULAR: Heart rate regular, 64 per minute. ABDOMEN: Soft, nontender, with active bowel sounds. No organomegaly. EXTREMITIES: No edema. Hands are very dry, which he attributes to his 30 years at the [employer]. NEUROLOGIC: Nonfocal. LABORATORIES CBC on 08/01/18 showed a WBC of 5.8, hemoglobin 16.0, hematocrit 46.2, platelets 105,000. CEA 3.0. Chromogranin A 57. CMP shows an AST of 67, ALT 75, alkaline phosphatase 128. IMPRESSION The patient is a 62-year-old male diagnosed with an appendicular carcinoid tumor after undergoing elective appendectomy on 02/16/17. Final pathology was positive for a 0.4 x 0.1 cm carcinoid tumor. No further treatment since that time. PLAN 1. Appendicular carcinoid tumor. No signs or symptoms of disease recurrence. CEA and chromogranin A both remain within normal limits and stable. CT scan on 01/03/18 showed no evidence of metastatic disease. Will continue followup. 2. Transaminitis. We reviewed liver enzymes over the past few years. They have remained slightly elevated, but very stable. He has not had any alcohol since 01/28/15. 3. Thrombocytopenia. Likely related to his alcoholic cirrhosis. Platelet count has been stable, now at 105,000. He denies any bruising or bleeding. 4. Follow up with me in three months for continued care. CBC, CMP, CEA, and chromogranin A will be drawn before that visit. 5. Follow up with Dr. Mayorga in six months with labs before the visit. [facility]
== END 2018-08-31 12:20 | disposition home or self-care (01) ==
LOC: SPU 08:30
PROVIDERS: ATTEND Internal Medicine Hematology
DX: Z85.89 Personal history of malignant neoplasm of other organs and systems (principal); D69.59 Other secondary thrombocytopenia; K70.30 Alcoholic cirrhosis of liver without ascites
CPT/HCPCS: 36415; 82040; 82247; 82310; 82374; 82378; 82435; 82565; 82947; 84075; 84132; 84155; 84295; 84450; 84460; 84520; 85025; 86316; 99212